=== PATIENT | female | born 1985 | race Caucasian/White ===

== ENCOUNTER 2023-07-19 07:47 | Day surgery (SDC) | payer BC ==
[2023-07-18 12:57] VITALS: BMI 28.9
[2023-07-19 09:24] LABS: HEMATOCRIT 40.7 % (32.4-45.2); HEMOGLOBIN 13.6 G/dL (10.7-15.3); MCH 30.2 pg (25.7-33.7); MCHC 33.5 g/dl (32.0-36.0); MEAN CELL VOLUME 90.3 fl (80-96); MEAN PLT VOLUME 9.9 fl (7.5-11.1); PLATELET COUNT 216.5 10^3/uL (134-434); RBC 4.51 10^6/uL (3.60-5.2); RDW 13.5 % (11.6-15.6); WHITE BLOOD COUNT 4.3 10^3/uL (4.0-10.8)
[2023-07-19 09:57] LABS: ALBUMIN 4.2 g/dl (3.4-5.0); BILIRUBIN,TOTAL 0.4 mg/dl (0.2-1); CALCIUM 9.2 mg/dl (8.5-10.1); CREATININE 0.7 mg/dl (0.6-1.3); TOT PROT 6.1 g/dl (6.4-8.2)
[2023-07-19 14:28] VITALS: RESP 18; TEMP 98
[2023-07-19 14:33] VITALS: BP 132/86; PULSE 88
== END 2023-07-19 14:30 | disposition home or self-care (01) ==
LOC: FECT 07:47
PROVIDERS: ATTEND Psychiatry & Neurology Psychiatry
PROC: GZB4ZZZ Other Electroconvulsive Therapy (ICD-10-PCS; principal; 2023-07-19 12:24)
DX: F33.9 Major depressive disorder, recurrent, unspecified (principal)
CPT/HCPCS: 36415; 80053; 81025; 85027; 90870; 93005; 93010; 94760

== ENCOUNTER 2023-07-23 10:00 | Day surgery (SDC) | payer BC ==
[2023-07-23 10:25] VITALS: BMI 28.9
[2023-07-23] MEDS ORDERED: KETAMINE HCL 100 MG/ML - 5ML VIAL ONE (11:35)
[2023-07-23] MEDS ORDERED: ACETAMINOPHEN INJECTION 100 ML IVPB ONE (12:30)
[2023-07-23] MEDS ORDERED: ACETAMINOPHEN 1000 MG/100 ML BAG IVPB ONE (12:34)
[2023-07-23] MEDS ORDERED: ONDANSETRON 4 MG/2 ML VIAL IVPUSH PRN (12:34)
[2023-07-23] MEDS ORDERED: PROMETHAZINE HCL 25 MG/1 ML VIAL IVPB PRN (12:34)
[2023-07-23] MEDS ORDERED: LACTATED RINGERS SOLUTION 1,000 ML IV SCH (12:45)
[2023-07-23 13:11] VITALS: RESP 19; TEMP 98.2
[2023-07-23 13:27] VITALS: BP 134/82; PULSE 87
== END 2023-07-23 13:45 | disposition home or self-care (01) ==
LOC: FECT 10:00
PROVIDERS: ATTEND Psychiatry & Neurology Psychiatry
PROC: GZB4ZZZ Other Electroconvulsive Therapy (ICD-10-PCS; principal; 2023-07-23 11:45)
DX: F33.2 Major depressive disorder, recurrent severe without psychotic features (principal)
CPT/HCPCS: 81025; 90870; 94760

== ENCOUNTER 2023-07-25 08:44 | Day surgery (SDC) | payer BC ==
[2023-07-19 15:29] VITALS: BMI 28.9
[2023-07-25] MEDS ORDERED: KETAMINE HCL 100 MG/ML - 5ML VIAL ONE (09:49)
[2023-07-25 10:49] VITALS: TEMP 97.2
[2023-07-25 12:30] VITALS: BP 139/88; PULSE 77; RESP 18
== END 2023-07-25 12:15 | disposition home or self-care (01) ==
LOC: FECT 08:44
PROVIDERS: ATTEND Student in an Organized Health Care Education/Training Program
PROC: GZB4ZZZ Other Electroconvulsive Therapy (ICD-10-PCS; principal; 2023-07-25 10:26)
DX: F33.2 Major depressive disorder, recurrent severe without psychotic features (principal)
CPT/HCPCS: 90870; 94760

== ENCOUNTER 2023-08-01 10:08 | Day surgery (SDC) | payer BC ==
[2023-07-29 08:22] VITALS: BMI 28.9
[2023-08-01] MEDS ORDERED: KETAMINE HCL 100 MG/ML - 5ML VIAL ONE (12:06)
[2023-08-01 13:42] VITALS: RESP 18
[2023-08-01 14:07] VITALS: BP 122/72; PULSE 86; TEMP 98.1
== END 2023-08-01 14:10 | disposition home or self-care (01) ==
LOC: FECT 10:08
PROVIDERS: ATTEND Student in an Organized Health Care Education/Training Program
PROC: GZB4ZZZ Other Electroconvulsive Therapy (ICD-10-PCS; principal; 2023-08-01 12:16)
DX: F33.2 Major depressive disorder, recurrent severe without psychotic features (principal)
CPT/HCPCS: 81025; 90870; 94760

== ENCOUNTER 2023-08-02 08:31 | Day surgery (SDC) | payer BC ==
[2023-07-31 17:28] VITALS: BMI 28.9
[2023-08-02] MEDS ORDERED: KETAMINE HCL 100 MG/ML - 5ML VIAL ONE (11:16)
[2023-08-02] MEDS ORDERED: KETOROLAC TROMETHAMINE 30 MG/1 ML VIAL ONE (11:36)
[2023-08-02] MEDS ORDERED: ONDANSETRON 4 MG/2 ML VIAL ONE (11:36)
[2023-08-02 12:39] VITALS: TEMP 97.4
[2023-08-02 12:55] VITALS: BP 136/82; PULSE 70; RESP 18
== END 2023-08-02 13:19 | disposition home or self-care (01) ==
LOC: FECT 08:31
PROVIDERS: ATTEND Student in an Organized Health Care Education/Training Program
PROC: GZB4ZZZ Other Electroconvulsive Therapy (ICD-10-PCS; principal; 2023-08-02 11:23)
DX: F33.2 Major depressive disorder, recurrent severe without psychotic features (principal)
CPT/HCPCS: 90870; 94760

== ENCOUNTER 2023-08-06 10:37 | Day surgery (SDC) | payer BC ==
[2023-08-02 09:33] VITALS: BMI 28.9
[2023-08-06] MEDS ORDERED: KETAMINE HCL 100 MG/ML - 5ML VIAL ONE (12:41)
[2023-08-06 14:02] VITALS: PULSE 78; RESP 16; TEMP 98.4
[2023-08-06 15:47] VITALS: BP 116/74
== END 2023-08-06 14:50 | disposition home or self-care (01) ==
LOC: FECT 10:37
PROVIDERS: ATTEND Student in an Organized Health Care Education/Training Program
PROC: GZB4ZZZ Other Electroconvulsive Therapy (ICD-10-PCS; principal; 2023-08-06 12:55)
DX: F33.2 Major depressive disorder, recurrent severe without psychotic features (principal)
CPT/HCPCS: 81025; 90870; 94760

== ENCOUNTER 2023-08-08 11:07 | Day surgery (SDC) | payer BC ==
[2023-08-02 10:16] VITALS: BMI 28.9
[2023-08-08 11:37] VITALS: TEMP 97.7
[2023-08-08] MEDS ORDERED: KETOROLAC TROMETHAMINE 30 MG/1 ML VIAL ONE (13:42)
[2023-08-08] MEDS ORDERED: ONDANSETRON 4 MG/2 ML VIAL ONE (13:42)
[2023-08-08] MEDS ORDERED: DEXAMETHASONE SOD PHOSPHATE 4 MG/1 ML VIAL ONE (13:43)
[2023-08-08] MEDS ORDERED: KETAMINE HCL 100 MG/ML - 5ML VIAL ONE (13:43)
[2023-08-08] MEDS ORDERED: SUCCINYLCHOLINE CHLORIDE 200 MG/10 ML SYRINGE ONE (13:49)
[2023-08-08 15:16] VITALS: RESP 18
[2023-08-08 15:37] VITALS: BP 139/78; PULSE 76
== END 2023-08-08 15:50 | disposition home or self-care (01) ==
LOC: FECT 11:07
PROVIDERS: ATTEND Student in an Organized Health Care Education/Training Program
PROC: GZB4ZZZ Other Electroconvulsive Therapy (ICD-10-PCS; principal; 2023-08-08 13:52)
DX: F33.2 Major depressive disorder, recurrent severe without psychotic features (principal)
CPT/HCPCS: 90870; 94760

== ENCOUNTER 2023-08-09 08:45 | Day surgery (SDC) | payer BC ==
[2023-08-02 10:41] VITALS: BMI 28.9
[2023-08-09] MEDS ORDERED: KETAMINE HCL 100 MG/ML - 5ML VIAL ONE (11:35)
[2023-08-09 12:42] VITALS: TEMP 97.8
[2023-08-09 13:04] VITALS: BP 131/84; PULSE 81; RESP 18
== END 2023-08-09 13:30 | disposition home or self-care (01) ==
LOC: FECT 08:45
PROVIDERS: ATTEND Psychiatry & Neurology Psychiatry
PROC: GZB4ZZZ Other Electroconvulsive Therapy (ICD-10-PCS; principal; 2023-08-09 11:41)
DX: F33.2 Major depressive disorder, recurrent severe without psychotic features (principal)
CPT/HCPCS: 90870; 94760

== ENCOUNTER 2023-08-13 08:14 | Day surgery (SDC) | payer BC ==
[2023-08-05 14:09] VITALS: BMI 28.9
[~2023-08-13 08:14] MED LIST: LACTATED RINGERS SOLUTION 1,000 ML IV SCH; ONDANSETRON 4 MG/2 ML VIAL IVPUSH PRN
[2023-08-13] MEDS ORDERED: KETAMINE HCL 100 MG/ML - 5ML VIAL ONE (09:39)
[2023-08-13 16:01] VITALS: BP 130/80; PULSE 78; RESP 18; TEMP 97.4
== END 2023-08-13 12:12 | disposition home or self-care (01) ==
LOC: FECT 08:14
PROVIDERS: ATTEND Psychiatry & Neurology Psychiatry
PROC: GZB4ZZZ Other Electroconvulsive Therapy (ICD-10-PCS; principal; 2023-08-13 10:01)
DX: F33.2 Major depressive disorder, recurrent severe without psychotic features (principal)
CPT/HCPCS: 81025; 90870; 94760

== ENCOUNTER 2023-08-15 07:54 | Day surgery (SDC) | payer BC ==
[2023-08-07 15:59] VITALS: BMI 28.9
[~2023-08-15 07:54] MED LIST changes: -LACTATED RINGERS SOLUTION 1,000 ML IV SCH
[2023-08-15] MEDS ORDERED: LACTATED RINGERS SOLUTION 1,000 ML IV SCH (08:00)
[2023-08-15] MEDS ORDERED: KETAMINE HCL 100 MG/ML - 5ML VIAL ONE (09:00)
[2023-08-15] MEDS ORDERED: SUCCINYLCHOLINE CHLORIDE 200 MG/10 ML SYRINGE ONE (09:06)
[2023-08-15] MEDS ORDERED: PROPOFOL 20 ML ONE (09:06)
[2023-08-15 10:28] VITALS: TEMP 98.1
[2023-08-15 10:50] VITALS: BP 138/86; PULSE 82; RESP 18
== END 2023-08-15 11:10 | disposition home or self-care (01) ==
LOC: FECT 07:54
PROVIDERS: ATTEND Student in an Organized Health Care Education/Training Program
PROC: GZB4ZZZ Other Electroconvulsive Therapy (ICD-10-PCS; principal; 2023-08-15 09:25)
DX: F33.9 Major depressive disorder, recurrent, unspecified (principal)
CPT/HCPCS: 90870; 94760

== ENCOUNTER 2023-08-16 08:31 | Day surgery (SDC) | payer BC ==
[2023-07-23 12:10] VITALS: BMI 28.9
[2023-08-16] MEDS ORDERED: KETAMINE HCL 100 MG/ML - 5ML VIAL ONE (11:40)
[2023-08-16 12:52] VITALS: RESP 16; TEMP 98.2
[2023-08-16] MEDS ORDERED: ACETAMINOPHEN 325 MG TABLET (FP) ONE (13:14)
[2023-08-16 13:56] VITALS: BP 146/90; PULSE 84
== END 2023-08-16 13:55 | disposition home or self-care (01) ==
LOC: FECT 08:31
PROVIDERS: ATTEND Student in an Organized Health Care Education/Training Program
PROC: GZB4ZZZ Other Electroconvulsive Therapy (ICD-10-PCS; principal; 2023-08-16 11:54)
DX: F33.2 Major depressive disorder, recurrent severe without psychotic features (principal)
CPT/HCPCS: 90870; 94760